=== PATIENT | male | born 1980 | race Caucasian/White ===

== ENCOUNTER 2016-12-28 16:26 | Emergency (ER) | payer SELFPAY ==
[~2016-12-28] VITALS: Ht 193 cm; Wt 74.0 kg
[~2016-12-28 16:26] MED LIST: PROC10TA4 PO; Z.0.NO CURRENT MEDS
[2016-12-28 16:27] VITALS: BP 147/84; PULSE 112; RESP 20; TEMP 98.1; O2SAT 97
[2016-12-28] MEDS ORDERED: AMOXICILLIN (TRIHYDRATE) 500 MG CAP PO ONE (17:15)
[2016-12-28] MEDS ORDERED: KETOROLAC TROMETHAMINE 60 MG/2 ML (IM) VIAL IM ONE (17:15)
--- NOTE | 2016-12-28 17:15 | PD ---
HPI Chief Complaint: Oral / Dental Pain or Problem Time Seen by Provider: 17:15 Travel History International Travel<30 days: No Contact w/Intl Traveler<30days: No Traveled to known affect area: No History of Present Illness HPI 36-year-old male presents to emergency Department with complaint of left upper tooth pain since Monday. Says the pain is moved up into his left upper cheek. Denies facial edema. Denies fever, vomiting. Denies sore throat, difficulty swallowing. Has been taking [id number] medications for symptom management. Symptoms are mild in severity. Has no other medical complaints. No known allergies. No other modifying factors or associated signs and symptoms. 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 HEAD: Atraumatic. Normocephalic. No facial edema, erythema, tenderness on palpation. No lymphadenopathy. EYES: Pupils equal and round. No scleral icterus. No injection or drainage. ENT: Mucosa pink and moist. Airway patent. MOUTH: Mucous membranes moist, no lesions, tongue and gums appear normal. Poor dentition throughout. Tooth #14 with tenderness on palpation; large dental cavity noted. Surrounding gingiva is without erythema, edema, drainage. No obvious abscess noted. NECK: Trachea midline. No lymphadenopathy. CARDIOVASCULAR: Regular rate. RESPIRATORY: No accessory muscle use. GASTROINTESTINAL: Flat. MUSCULOSKELETAL: No obvious deformities. No clubbing. No cyanosis. No edema. NEUROLOGICAL: Awake and alert. Oriented 3. No obvious cranial nerve deficits. Motor grossly within normal limits. Normal speech. PSYCHIATRIC: Appropriate mood and affect; insight and judgment normal. Data Data Last Documented VS Vital Signs Date Time Temp Pulse Resp B/P (MAP) Pulse Ox O2 Delivery O2 Flow Rate FiO2 12/28/16 17:24 92 12/28/16 16:27 98.1 20 97 Room Air Orders Orders Ketorolac Inj (Toradol Inj) (12/28/16 17:15) Amoxicillin (Trimox) (12/28/16 17:15) [facility] Medical Decision Making Medical Screen Exam Complete: Yes Emergency Medical Condition: Yes Medical Record Reviewed: Yes Differential Diagnosis Dental abscess, dentalgia, dental cavities, gingivitis Narrative Course 36-year-old male is going exam consistent with dentalgia and dental cavities. No facial edema or erythema. Denies fever, vomiting. Patient is afebrile and nontoxic-appearing. Toradol administered in the ER. Amoxicillin, ibuprofen, Peridex mouth rinse prescribed for home. Instructed patient to follow up with dentist. Emergency dental information sheet provided for follow-up. Instructed patient to follow up with primary care provider. Patient verbalizes understanding and agreement with treatment plan. Patient is medically cleared and stable for discharge. Discussed reasons to return to the emergency department. Patient agrees with treatment plan. The patients vital signs are stable and the patient is stable for outpatient follow-up and treatment. Patient discharged home, stable and in no acute distress. Diagnosis Primary Impression: Dentalgia Additional Impression: Dental cavities Referrals: Dentist Primary Care Physician Patient Instructions: Dental Abscess (ED), Dental Caries (ED), General Instructions, Toothache (ED) Additional Instructions: Complete full course of antibiotics Ibuprofen or Tylenol as directed and as needed to reduce pain and inflammation Use Peridex as directed for oral hygiene Warm or cool compresses to the affected area Follow-up with dentist Follow-up with primary care provider Return to emergency department immediately with worsening of symptoms Med/Other Pt SpecificInfo: Prescription(s) given Scripts Amoxicillin (Amoxicillin) 500 Mg Cap 500 MG PO BID for Infection for 10 Days, CAP 0 Refills Prov: Tiny FlorentinoP 12/28/16 Ibuprofen (Ibuprofen) 800 Mg Tab 800 MG PO Q6HR Y for PAIN, #30 TAB 0 Refills Prov: Tiny FlorentinoP 12/28/16 Chlorhexidine Gluconate (Mouth) Liq (Peridex Liq) 0.12% Soln 15 ML SWISH-SPIT BID for 10 Days, #473 ML 0 Refills Prov: Tiny Florentino 12/28/16 Disposition: 01 DISCHARGE HOME Condition: Stable Tiny Florentino Dec 28, 2016 17:15
[2016-12-28] MEDS ORDERED: AMOX500C PO (17:19)
[2016-12-28] MEDS ORDERED: PERI0.126 SWISH-SPIT (17:19)
[2016-12-28] MEDS ORDERED: IBUP800T23 PO (17:19)
== END 2016-12-28 17:38 | disposition home or self-care (01) ==
LOC: NEPK 16:26
DX: K02.9 Dental caries, unspecified (principal)
CPT/HCPCS: 96372; 99283; J1885

== ENCOUNTER 2017-10-14 17:11 | Emergency (ER) | payer SELFPAY ==
[~2017-10-14] VITALS: Ht 182.9 cm; Wt 59.0 kg
[~2017-10-14 17:11] MED LIST changes: +AMOX500C PO; +IBUP1TAB7 PO; +PERI0.126 SWISH-SPIT; -PROC10TA4 PO; -Z.0.NO CURRENT MEDS
[2017-10-14 17:17] VITALS: BP 142/85; PULSE 80; RESP 18; O2SAT 97
--- NOTE | 2017-10-14 17:47 | PD ---
HPI Chief Complaint: OD/ Ingestion Time Seen by Provider: 17:19 Travel History International Travel<30 days: No Contact w/Intl Traveler<30days: No Traveled to known affect area: No History of Present Illness HPI Patient 36-year-old male room to the emergency department after found unresponsive by EMS, initially apneic, was given Narcan intramuscularly and return of spontaneous respirations mentation. Fairly somnolent on arrival. He is able to provide his own history and states that he did heroin for the third time in his life and knows it was stupid and he thinks he overdosed. He has no physical complaints at this time. Denies any chest pain shortness breath abdominal pain nausea vomiting diarrhea constipation. 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 SKIN: Focused skin assessment warm/dry. HEAD: Normocephalic. EYES: No scleral icterus. No injection or drainage. NECK: Supple, trachea midline. No JVD or lymphadenopathy. CARDIOVASCULAR: Regular rate and rhythm without murmurs, gallops, or rubs. RESPIRATORY: Breath sounds equal bilaterally. No accessory muscle use. No wheezes rales or rhonchi GASTROINTESTINAL: Abdomen soft, non-tender, nondistended. MUSCULOSKELETAL: No cyanosis, or edema. Neurologic: GCS of 14(E3), follows commands in all 4 extremities. Cranial nerves II through XII grossly intact and nonfocal BACK: Nontender without obvious deformity. No CVA tenderness. Data Data Last Documented VS Vital Signs Date Time Temp Pulse Resp B/P (MAP) Pulse Ox O2 Delivery O2 Flow Rate FiO2 10/14/17 18:08 70 18 98 Room Air 10/14/17 17:17 142/85 (104) Orders Orders Electrocardiogram (10/14/17 17:27) Ed Discharge Order (10/14/17 19:11) [facility] Medical Decision Making Medical Screen Exam Complete: Yes Emergency Medical Condition: Yes Differential Diagnosis Heroin overdose, hypoxia, aspiration pneumonia unlikely. Narrative Course Patient room to the emergency department, discussed observation. In the emergency department, initially targeted for 3 hours the patient approached nursing desk at 2 hours, cooperative, states he was wide awake and wish for discharge. I think that at this point he is stable for discharge, discussed abstinence for hair when other illicit substance alcohol and tobacco, follow-up store [employer]. He is stable for discharge per Diagnosis Primary Impression: Heroin overdose [facility] No Active Prescriptions or Reported Meds Disposition: 01 DISCHARGE HOME Condition: Stable Giuliano Galvin MD Oct 14, 2017 17:46
--- NOTE | 2017-10-15 13:46 | EKG ---
Date Performed: 10/14/2017 Time Performed: 17:27:16 PTAGE: 36 years EKG: Sinus rhythm BORDERLINE RIGHT AXIS DEVIATION BORDERLINE ECG NO PREVIOUS TRACING DOCTOR: Alfredito Luevano Interpretating Date/Time 10/15/2017 13:46:16
== END 2017-10-14 19:52 | disposition home or self-care (01) ==
LOC: NEPE 17:11
DX: T40.1X1A Poisoning by heroin, accidental (unintentional), initial encounter (principal)
CPT/HCPCS: 93005

== ENCOUNTER 2017-11-02 08:19 | Observation (INO) ==
[2017-11-02] MEDS ORDERED: Sod Chloride 0.9% Inj 1,000 ML IV.SIG ONE (09:30)
[2017-11-02] MEDS ORDERED: Acetaminophen 325 MG Tablet PO ONE (09:30)
--- NOTE | 2017-11-02 09:46 | ED ---
HPI General Chief complaint: Skin/Abscess/Foreign Body Stated complaint: Poss Infection Time Seen by Provider: 11/02/17 09:24 Source: patient and family Mode of arrival: ambulatory History of Present Illness HPI narrative: 36-year-old male notes progressive redness and swelling to his face despite home antibiotic therapy given here on the . He denies any new complaints otherwise. He states he thinks the antibiotic was monocycline but is not sure. States last IV drug use was 2 years ago. complaint: other (facial swelling and redness) Onset (ago): day(s) Location: face Severity: severe Quality: sharp Pain Consistency: constant Relieving factors: none Exacerbating factors: movement Context: other (recent er visit on the of this month) Associated symptoms: denies other symptoms Treatments prior to arrival: Benadryl Related Data Previous Rx's Medication Instructions Recorded clindamycin HCl 300 mg PO Q8H 14 Days #84 cap 10/30/17 Allergies Allergy/AdvReac Type Severity Reaction Status Date / Time No Known Allergies Allergy Verified 11/02/17 09:32 Review of Systems Except as stated in HPI: all other systems reviewed are negative [facility] Medical History Medical History Meningitis (Acute) Surgical History Surgical History No history of previous surgery (Acute) Social History Social History Substance History: Past History Smoking Status: Never smoker How Often Do You Have a Drink Containing Alcohol: Never Recent Out of Country Travel within the Last 8 Weeks: No Immunization History Tetanus Immunization: <5 Years Hx Influenza Vaccine This Season: Yes Exam Narrative Exam Narrative: GENERAL: 36 y/o male who appears uncomfortable SKIN: Patient has redness to bilateral lower face with swelling left greater than right HEAD: Atraumatic. EYES: Pupils equal and round. No scleral icterus. No injection or drainage. ENT: No nasal bleeding or discharge. Mucous membranes pink and moist. NECK: Trachea midline. CARDIOVASCULAR: Regular rate and rhythm. No murmur appreciated. RESPIRATORY: No accessory muscle use. Clear to auscultation. Breath sounds equal bilaterally. GASTROINTESTINAL: Abdomen soft, non-tender, nondistended MUSCULOSKELETAL: No obvious deformities. No clubbing. No cyanosis. NEUROLOGICAL: Awake and alert. No obvious cranial nerve deficits. Motor grossly within normal limits. Normal speech. Course Hospital Course: Review of records shows patient received IV clindamycin and was sent home on oral clindamycin. Patient had heroin overdose on October 19 of this year Reevaluation(s) Reevaluation #1: patient requesting additional pain medication and was given Toradol. Will admit for further care Consultations Consultation #1: dr elmore agrees to admit Initial Documented Vital Signs Temperature 99.2 F 11/02/17 08:23 Pulse Rate 87 11/02/17 08:23 Respiratory Rate 16 11/02/17 08:23 Blood Pressure 158/98 H 11/02/17 08:23 Pulse Oximetry 100 11/02/17 08:23 Last Documented Vital Signs Temperature 99.2 F 11/02/17 08:23 Pulse Rate 80 11/02/17 11:25 Respiratory Rate 14 11/02/17 11:25 Blood Pressure 156/87 H 11/02/17 11:25 Pulse Oximetry 100 11/02/17 11:25 Medical Decision Making [facility] Narrative Medical decision making narrative: Will check blood work, repeat CT scan and reevaluate Differential Diagnosis Differential Diagnosis: Abscess, facial cellulitis, allergic reaction Lab Data Result diagrams: 11/02/17 09:50 11/02/17 09:50 Lab Results 11/02/17 11/02/17 11/02/17 Range/Units 09:50 09:50 09:50 WBC 11.3 H (4.0-11.0) th/mm3 RBC 5.15 (4.50-5.90) mil/mm3 Hgb 15.2 (13.0-17.0) gm/dL Hct 45.7 (39.0-51.0) % MCV 88.8 (80.0-100.0) fL MCH 29.6 (27.0-34.0) pg MCHC 33.3 (32.0-36.0) % RDW 14.3 (11.6-17.2) % Plt Count 236 (150-450) th/mm3 MPV 8.0 (7.0-11.0) fL Neut % (Auto) 79.3 H (16.0-70.0) % Lymph % (Auto) 11.5 (9.0-44.0) % [place] % (Auto) 7.3 (0.0-8.0) % Eos % (Auto) 1.6 (0.0-4.0) % Baso % (Auto) 0.3 (0.0-2.0) % Neut # (Auto) 8.9 H (1.8-7.7) th/mm3 Lymph # (Auto) 1.3 (1.0-4.8) th/mm3 [place] # (Auto) 0.8 (0.0-0.9) th/mm3 Eos # (Auto) 0.2 (0.0-0.4) th/mm3 Baso # (Auto) 0.0 (0.0-0.2) th/mm3 WBC Differential . Differential Comment Auto diff final PT 9.4 L (9.8-11.6) sec INR 0.9 Ratio APTT 28.3 (24.3-30.1) sec Sodium 139 (136-145) meq/L Potassium 4.6 (3.5-5.1) meq/L Chloride 105 (98-107) meq/L Carbon Dioxide 27.7 (21.0-32.0) meq/L Anion Gap 6 (5-15) meq/L BUN 8 (7-18) mg/dL Creatinine 0.95 (0.60-1.30) mg/dL Estimated GFR 89 (>89) mL/min Random Glucose 103 (74-106) mg/dL Lactic Acid (0.4-2.0) mmol/L Calcium 8.4 L (8.5-10.1) mg/dL Magnesium 1.8 (1.5-2.5) mg/dL Total Bilirubin 0.8 (0.2-1.0) mg/dL AST 41 H (15-37) U/L ALT 57 (12-78) U/L Alkaline Phosphatase 94 (45-117) U/L Total Protein 7.4 (6.4-8.2) g/dL Albumin 3.4 (3.4-5.0) g/dL 11/02/17 Range/Units 09:50 WBC (4.0-11.0) th/mm3 RBC (4.50-5.90) mil/mm3 Hgb (13.0-17.0) gm/dL Hct (39.0-51.0) % MCV (80.0-100.0) fL MCH (27.0-34.0) pg MCHC (32.0-36.0) % RDW (11.6-17.2) % Plt Count (150-450) th/mm3 MPV (7.0-11.0) fL Neut % (Auto) (16.0-70.0) % Lymph % (Auto) (9.0-44.0) % [place] % (Auto) (0.0-8.0) % Eos % (Auto) (0.0-4.0) % Baso % (Auto) (0.0-2.0) % Neut # (Auto) (1.8-7.7) th/mm3 Lymph # (Auto) (1.0-4.8) th/mm3 [place] # (Auto) (0.0-0.9) th/mm3 Eos # (Auto) (0.0-0.4) th/mm3 Baso # (Auto) (0.0-0.2) th/mm3 WBC Differential Differential Comment PT (9.8-11.6) sec INR Ratio APTT (24.3-30.1) sec Sodium (136-145) meq/L Potassium (3.5-5.1) meq/L Chloride (98-107) meq/L Carbon Dioxide (21.0-32.0) meq/L Anion Gap (5-15) meq/L BUN (7-18) mg/dL Creatinine (0.60-1.30) mg/dL Estimated GFR (>89) mL/min Random Glucose (74-106) mg/dL Lactic Acid 1.6 (0.4-2.0) mmol/L Calcium (8.5-10.1) mg/dL Magnesium (1.5-2.5) mg/dL Total Bilirubin (0.2-1.0) mg/dL AST (15-37) U/L ALT (12-78) U/L Alkaline Phosphatase (45-117) U/L Total Protein (6.4-8.2) g/dL Albumin (3.4-5.0) g/dL Imaging Data Radiologist's impression: ITS Impressions Chest X-Ray 11/02/17 09:30 CONCLUSION: No acute cardiopulmonary disease. Face CT 11/02/17 09:30 CONCLUSION: 1. Significant bilateral facial inflammation characteristic of cellulitis with subcutaneous fat involvement. There is no evidence of discrete abscess. 2. Significant reduction compared to 10/30 3. No evidence of deep fascial or intracranial involvement. Discharge Plan Discharge Disposition Patient Disposition: 30 Still Patient Discharge Details Diagnosis: Cellulitis of face Physicians Team ED Provider: Anali Ponce Primary Care Provider: Primary Care Marsha Allen Attending Provider: Roseline Elmore Discharge Interventions Interventions: Vital Signs Last Done: 11/02/17 11:25 Status ED Status: Admitted Patient
[2017-11-02] MEDS ORDERED: Ketorolac Inj 30 MG/ML (IVP) Vial IV.PUSH ONE ×2 (10:01→10:45)
[2017-11-02 10:03] LABS: Baso % (Auto) 0.3 % (0.0-2.0); Eos # (Auto) 0.2 th/mm3 (0.0-0.4); Eos % (Auto) 1.6 % (0.0-4.0); Hematocrit 45.7 % (39.0-51.0); Hemoglobin 15.2 gm/dL (13.0-17.0); Lymph # (Auto) 1.3 th/mm3 (1.0-4.8); Lymph % (Auto) 11.5 % (9.0-44.0); Mean Corpuscular HGB Conc 33.3 % (32.0-36.0); Mean Corpuscular Hemoglobin 29.6 pg (27.0-34.0); Mean Corpuscular Volume 88.8 fL (80.0-100.0); Mono # (Auto) 0.8 th/mm3 (0.0-0.9); Mono % (Auto) 7.3 % (0.0-8.0); Neut # (Auto) 8.9 th/mm3 (1.8-7.7); Neut % (Auto) 79.3 % (16.0-70.0); Platelet Count 236 th/mm3 (150-450); Red Blood Count 5.15 mil/mm3 (4.50-5.90); Red Cell Distribution Width 14.3 % (11.6-17.2); White Blood Count 11.3 th/mm3 (4.0-11.0)
[2017-11-02 10:11] LABS: Activated Partial Thrombo Time 28.3 sec (24.3-30.1); INR 0.9 Ratio; Prothrombin Time 9.4 sec (9.8-11.6)
[2017-11-02 10:27] LABS: Alkaline Phosphatase 94 U/L (45-117); Total Protein 7.4 g/dL (6.4-8.2)
[2017-11-02 10:29] LABS: Alanine Aminotransferase 57 U/L (12-78); Albumin 3.4 g/dL (3.4-5.0); Anion Gap 6 meq/L (5-15); Aspartate Aminotransferase 41 U/L (15-37); Blood Urea Nitrogen 8 mg/dL (7-18); Calcium 8.4 mg/dL (8.5-10.1); Carbon Dioxide 27.7 meq/L (21.0-32.0); Chloride 105 meq/L (98-107); Glomerular Filtration Rate 89 mL/min (>89); Glucose,Random 103 mg/dL (74-106); Magnesium 1.8 mg/dL (1.5-2.5); Potassium 4.6 meq/L (3.5-5.1); Sodium 139 meq/L (136-145)
--- NOTE | 2017-11-02 10:29 | XR ---
EXAM DATE: 11/02/2017 10:04 AM EDT AGE/SEX: 36 years / Male INDICATIONS: Short of breath and fever. CLINICAL DATA: This is the patient's initial encounter. Patient reports that signs and symptoms have been present for 1 day and indicates a pain score of 0/10. MEDICAL/SURGICAL HISTORY: None. None. COMPARISON: No prior exams available for comparison. FINDINGS: A single AP view of the chest demonstrates the lungs to be symmetrically aerated without evidence of mass, infiltrate or effusion. The cardiomediastinal contours are unremarkable. Osseous structures a re intact. CONCLUSION: No acute cardiopulmonary disease. Electronically signed by: Nelson Covarrubias MD 11/02/2017 10:27 AM EDT
[2017-11-02] MEDS ORDERED: Vancomycin Inj 1 GM/200 ML PIGGYBACK IV.SIG ONE (10:33)
[2017-11-02] MEDS ORDERED: Vancomycin Inj 1,000 MG in Sodium Chlor 0.9% Inj 250 ML IV.SIG ONE (11:00)
--- NOTE | 2017-11-02 12:07 | CT ---
EXAM DATE: 11/02/2017 11:45 AM EDT AGE/SEX: 36 years / Male INDICATIONS: Non improving facial pain and facial pain bilaterally. CLINICAL DATA: This is the patient's sequela encounter. Patient reports that signs and symptoms have been present for 1 week and indicates a pain score of 8/10. MEDICAL/SURGICAL HISTORY: None. None. RADIATION DOSE: 29.28 CTDI (mGy) COMPARISON: [facility] – [place], [place] FACIAL BONES W IV CON, 10/30/2017. . TECHNIQUE: Contiguous images in the axial and coronal planes were obtained using helical multirow de tector technique with 60 ml Omnipaque 350 (iohexol) nonionic water-soluble contrast as a single exam dose. Using automated exposure control and adjustment of the mA and/or kV according to patient size , radiation dose was kept as low as reasonably achievable to obtain optimal diagnostic quality images . DICOM format image data is available electronically for review and comparison. FINDINGS: Orbits: The orbital and infraorbital osseous structures are intact. The retroconal structures have a normal configuration. No radiopaque foreign bodies are seen. Nasal Bone: The nasal bone and maxillary spine are intact. Zygomatic Arches: Symmetric without evidence of fracture. Sinuses: The maxillary, ethmoid and frontal sinuses are intact. No air-fluid levels seen. Nasal Cavity: The nasal septum is intact and midline. The lacrimal ducts are intact. Soft Tissues: Significant bilateral subcutaneous inflammation is identified. The soft tissue swellin g begins in the infraorbital region and extends to the mandible. Inflammation is significantly worse on the right. There are no loculated fluid collections characteristic of an abscess. Inflammatory pro cess has significantly progressed since 10/30/2017 Intracranial: No intracranial air seen. Cribriform Plate: Grossly intact. Post Contrast: No abnormal areas of enhancement seen. CONCLUSION: 1. Significant bilateral facial inflammation characteristic of cellulitis with subcutaneous fat invo lvement. There is no evidence of discrete abscess. 2. Significant reduction compared to 10/30 3. No evidence of deep fascial or intracranial involvement. Electronically signed by: Bowen Linton MD 11/02/2017 12:06 PM EDT
[2017-11-02] MEDS ORDERED: Piperacil/Tazo 3.375 GM Premix 50 ML IV.SIG ONE (12:20)
[2017-11-02] MEDS ORDERED: Bisacodyl 10 MG Supp RECTAL PRN (12:36)
[2017-11-02] MEDS ORDERED: Temazepam 15 MG Capsule PO PRN (12:36)
--- NOTE | 2017-11-02 15:03 | P.CONID ---
History of Present Illness Service: ID Consult date: 11/02/17 Requesting Physician: Roseline Elmore Reason for Consult: Evaluation and Mment of Facial cellulitis/abscess Primary Care Provider: No Primary Care Physician Family Provider: No Primary Care Physician History of Present Illness: is a 36-year-old male with past medical history significant for recent IV drug abuse as recently as 2 weeks back as well as prior history of bacterial meningitis in 1999. Patient initially presented to the emergency department on October 29, 2017 with multiple lesions on his face. Patient reports he has a compulsive habit of pulling out hair that are ingrown from his face and more recently he noticed is obsessed with the care of. He started noticing swelling on his face bilaterally and started picking at them and noticed purulent discharge from them. Patient was discharged on clindamycin oral and despite taking antibiotics his facial swelling and pain kept getting worse and so he presented back to the hospital. He reports facial swelling as well as swelling around his eye especially on the lower eyelid. Patient reports that due to the eyelid swelling he is unable to completely open his eyes and therefore thinks it is obstructing his vision. Pertinent positives and negatives: He denies any history of fever but reports chills. Patient admits to using crack and heroin intravenously. He denies any other lesion elsewhere on the body. He does have tattoos but none of these are recent. Patient reports he has been tested for HIV as well as hepatitis [facility] recently and these were both negative and is to be tested Patient also reports being tested for tuberculosis using a skin test which is negative. Infectious disease consulted for evaluation and management of bilateral facial cellulitis and abscesses. Review of Systems All other systems reviewed negative except as stated in HPI PMFSH - History History Provided By: Patient - Medical History Medical History: Medical History (Last Reviewed 11/02/17 @ 09:44 by Anali Ponce MD) Meningitis - Surgical History Surgical History: Surgical History (Last Reviewed 11/02/17 @ 09:44 by Anali Ponce MD) No history of previous surgery - Family History Family History: Family History (Last Updated 11/02/17 @ 18:26 by Suzanne Roche RN) Father Family history of diabetes mellitus Family history of hypertension Mother Family history of breast cancer - Tobacco History Smoking Status: Never smoker - Alcohol History How Often Do You Have a Drink Containing Alcohol: Never - Substance Use History Substance History: Past History - Substance Use Type Heroin Status: Early Remission Route Used: Intravenously Frequency: 3X PER MONTH Last Used: 10/17/2017 Reason for Use: Feels Good Comment: PT STATES "WENT ON 2 WEEK ANGELES." Crack/Cocaine Status: Early Remission Route Used: Inhalation Frequency: DAILY FOR WEEK Last Used: 10/17/2017 Reason for Use: Feels Good Comment: PT STATES "ALL DRUGS USED DURING THE 2 WEEK ANGELES." Methamphetamine Type: CRYSTAL METH Status: Early Remission Route Used: Intravenously Frequency: 5 DAYS Last Used: 10/19/2017 Reason for Use: Socialization Other Type: DILAUDA Status: Early Remission Route Used: Intravenously Frequency: 4MG TWICE A DAY Last Used: 10/13/2017 Reason for Use: Calm Down Comment: PT. STATES "USED DILAUDA PRIOR TO CUSTODIAL. GOT OUT OF CUSTODIAL 08/11/2017 AND PARTICIPATED IN DRUG USE A CELEBRATION FOR RELEASE." - Travel History Recent Travel Out of the Country Within the Last 8 Weeks: No - Immunization History Tetanus Immunization: <5 Years Hx Influenza Vaccine This Season: Yes Medications and Allergies Active Medications: Active Medications Hydrocodone Bitart/Acetaminophen ([place] 7.5/325) 1 tab PO Q6H PRN PRN Reason: PAIN SCALE 6 TO 10 Last Admin: 11/02/17 14:59 Dose: 1 tab Al Hydroxide/Mg Hydroxide (Milk Of Magnesia Liq) 30 ml PO Q12H PRN PRN Reason: Mild Constipation Bisacodyl (Dulcolax Supp) 10 mg RECTAL DAILY PRN PRN Reason: SEVERE CONSITIPATION Lactulose (Lactulose Liq) 30 ml PO DAILY PRN PRN Reason: SEVERE CONSITIPATION Senna/Docusate Sodium (Kelly-Colace) 1 tab PO BID [place] Sennosides (Senokot) 17.2 mg PO Q12H PRN PRN Reason: Moderate Constipation Temazepam (Restoril) 15 mg PO HS PRN PRN Reason: INSOMNIA Allergies Allergy/AdvReac Type Severity Reaction Status Date / Time No Known Allergies Allergy Verified 11/02/17 09:32 Exam Vital signs: Vital Signs 11/02/17 08:23 11/02/17 09:27 11/02/17 10:29 Temperature 99.2 F Pulse Rate 87 88 Respiratory Rate 16 12 Blood Pressure 158/98 H 159/93 H Pulse Oximetry 100 100 100 11/02/17 11:25 11/02/17 13:55 Temperature Pulse Rate 80 94 H Respiratory Rate 14 16 Blood Pressure 156/87 H 145/95 H Pulse Oximetry 100 98 Intake & Output 11/01/17 11/02/17 11/02/17 18:59 06:59 18:59 Intake Total 1300 / 1300 Balance 1300 / 1300 Weight 74.843 kg Intake: IV 1300 / 1300 Zosyn 3.375 GM Premix 50 ML @ 50 / 50 100 mls/hr IV.SIG ONCE ONE Rx#: [id number] Vancomycin Inj 1,000 MG In NS 250 / 250 Inj 250 ML @ 250 mls/hr IV.SIG ONCE ONE Rx#:[id number] Narrative: GENERAL: Well-nourished well-developed, not in acute distress SKIN: Multiple tattoos noted on the body. No generalized rash. The right side of the face close to the temporomandibular joint there is a large area of induration and erythema noted., No fluctuance noted. There is another area of induration noted close to the angle of his mouth on the right side again this is evaluated with no fluctuance noted. On the left side of his cheek there was another area of induration with no fluctuation noted but there is erythema noted. HEAD: Atraumatic. Normocephalic. No temporal or scalp tenderness. EYES: Pupils equal round and reactive. Scleral icterus. No injection or drainage. No petechia ENT: Nothing abnormal detected NECK: Trachea midline. Supple, nontender, no meningeal signs. CARDIOVASCULAR: HS audible. RESPIRATORY: Clear to auscultation bilaterally. GASTROINTESTINAL: Abdomen soft nontender. MUSCULOSKELETAL: Extremities without clubbing, cyanosis. NEUROLOGICAL: Alert oriented 3. Nonfocal. Psych appears anxious. IV line sites ok. Results - Labs CBC & Chem 7: 11/02/17 09:50 11/02/17 09:50 Labs: Laboratory Results - last 24 hr 11/02/17 11/02/17 11/02/17 09:50 09:50 09:50 WBC 11.3 H RBC 5.15 Hgb 15.2 Hct 45.7 MCV 88.8 MCH 29.6 MCHC 33.3 RDW 14.3 Plt Count 236 MPV 8.0 Neut % (Auto) 79.3 H Lymph % (Auto) 11.5 [place] % (Auto) 7.3 Eos % (Auto) 1.6 Baso % (Auto) 0.3 Neut # (Auto) 8.9 H Lymph # (Auto) 1.3 [place] # (Auto) 0.8 Eos # (Auto) 0.2 Baso # (Auto) 0.0 WBC Differential . Differential Comment Auto diff final PT 9.4 L INR 0.9 APTT 28.3 Sodium 139 Potassium 4.6 Chloride 105 Carbon Dioxide 27.7 Anion Gap 6 BUN 8 Creatinine 0.95 Estimated GFR 89 Random Glucose 103 Lactic Acid Calcium 8.4 L Magnesium 1.8 Total Bilirubin 0.8 AST 41 H ALT 57 Alkaline Phosphatase 94 Total Protein 7.4 Albumin 3.4 11/02/17 09:50 WBC RBC Hgb Hct MCV MCH MCHC RDW Plt Count MPV Neut % (Auto) Lymph % (Auto) [place] % (Auto) Eos % (Auto) Baso % (Auto) Neut # (Auto) Lymph # (Auto) [place] # (Auto) Eos # (Auto) Baso # (Auto) WBC Differential Differential Comment PT INR APTT Sodium Potassium Chloride Carbon Dioxide Anion Gap BUN Creatinine Estimated GFR Random Glucose Lactic Acid 1.6 Calcium Magnesium Total Bilirubin AST ALT Alkaline Phosphatase Total Protein Albumin - Imaging Impressions Chest X-Ray 11/02/17 09:30 CONCLUSION: No acute cardiopulmonary disease. Face CT 11/02/17 09:30 CONCLUSION: 1. Significant bilateral facial inflammation characteristic of cellulitis with subcutaneous fat involvement. There is no evidence of discrete abscess. 2. Significant reduction compared to 10/30 3. No evidence of deep fascial or intracranial involvement. Assessment and Plan - Plan Bilateral facial cellulitis as well as multiple abscesses on the face. History of compulsive picking on the base. Possible history of anxiety and depression. History of incarceration. Recommendations: Start vancomycin IV target trough 10-15 Start doxycycline oral will help with the anti-inflammatory effect. Discussed with Dr. Elmore consider psych consult ? OCD related compulsive picking of face. Consult Plastics to see if any of these abscesses can be drained. Follow cultures Follow clinically.
--- NOTE | 2017-11-02 15:15 | P.HP ---
History of Present Illness Primary Care Physician: No Primary Care Physician Chief Complaint: Generalized weakness, multiple facial lesions and swelling. History of Present Illness: Mr. Barney is a pleasant 36-year-old male with a history of bacterial meningitis in 1999, recent IV drug abuse who presents to the emergency department due to worsening facial lesions and swelling. On 10/29/2017, patient started noticing multiple lesions on his face. He used tweezers to pick some here from his face. He came to the emergency department on 10/30/2017 and he was discharged on clindamycin. Despite taking antibiotics, his facial swelling, pain kept getting worse. He also reports chills but no fever. He admits to using IV drugs 2 weeks ago -he uses crack and heroine. At the time of this interview, patient denies any chest pain, shortness of breath, fever or chills. He reports facial swelling and difficulty eating. No changes in bowel or bladder habits. - Diagnosis (1) IVDU (intravenous drug user) (2) Cellulitis of face Inpatient Certification: I certify that the inpatient services were ordered in accordance with Medicare regulations governing the order. This includes certification that hospital inpatient services are reasonable and necessary and in the case of services not specified as inpatient-only under 42 CFR 419.22(n), that they are appropriately provided as inpatient services in accordance to with the 2-midnight benchmark under 43 CFR 412.3(e) Review of Systems All other systems reviewed negative except as stated in HPI Constitutional: Reports chills Skin/Breast: Reports lesions, Reports redness, Reports skin pain PMFSH - History History Provided By: Patient - Medical History Medical History: Medical History (Last Reviewed 11/02/17 @ 09:44 by Anali Ponce MD) Meningitis - Surgical History Surgical History: Surgical History (Last Reviewed 11/02/17 @ 09:44 by Anali Ponce MD) No history of previous surgery - Tobacco History Smoking Status: Never smoker - Alcohol History How Often Do You Have a Drink Containing Alcohol: Never - Substance Use History Substance History: Past History - Travel History Recent Travel Out of the Country Within the Last 8 Weeks: No - Immunization History Tetanus Immunization: <5 Years Hx Influenza Vaccine This Season: Yes Medications and Allergies Active Medications: Active Medications Hydrocodone Bitart/Acetaminophen ([place] 7.5/325) 1 tab PO Q6H PRN PRN Reason: PAIN SCALE 6 TO 10 Al Hydroxide/Mg Hydroxide (Milk Of Magnesia Liq) 30 ml PO Q12H PRN PRN Reason: Mild Constipation Bisacodyl (Dulcolax Supp) 10 mg RECTAL DAILY PRN PRN Reason: SEVERE CONSITIPATION Lactulose (Lactulose Liq) 30 ml PO DAILY PRN PRN Reason: SEVERE CONSITIPATION Senna/Docusate Sodium (Kelly-Colace) 1 tab PO BID [place] Sennosides (Senokot) 17.2 mg PO Q12H PRN PRN Reason: Moderate Constipation Temazepam (Restoril) 15 mg PO HS PRN PRN Reason: INSOMNIA Allergies Allergy/AdvReac Type Severity Reaction Status Date / Time No Known Allergies Allergy Verified 11/02/17 09:32 Exam Vital signs: Vital Signs 11/02/17 08:23 11/02/17 09:27 11/02/17 10:29 Temperature 99.2 F Pulse Rate 87 88 Respiratory Rate 16 12 Blood Pressure 158/98 H 159/93 H Pulse Oximetry 100 100 100 11/02/17 11:25 11/02/17 13:55 Temperature Pulse Rate 80 94 H Respiratory Rate 14 16 Blood Pressure 156/87 H 145/95 H Pulse Oximetry 100 98 Intake & Output 11/01/17 11/02/17 11/02/17 18:59 06:59 18:59 Weight 74.843 kg Narrative: GENERAL: This is a well-nourished, well-developed patient, in no apparent distress. SKIN: No rashes, ecchymoses or lesions. Warm and dry. Multiple erythematous skin lesions with induration noted on the face. HEAD: Atraumatic. Normocephalic. No temporal or scalp tenderness. EYES: Pupils equal round and reactive. No injection or drainage. ENT: Nose without bleeding, purulent drainage or septal hematoma. Airway patent. NECK: Trachea midline. No lymphadenopathy. Supple, nontender, no meningeal signs. CARDIOVASCULAR: Regular rate and rhythm without murmurs, gallops, or rubs. No JVD. RESPIRATORY: Clear to auscultation. Breath sounds equal bilaterally. No wheezes , rales, or rhonchi. GASTROINTESTINAL: Abdomen soft, non-tender, nondistended. No guarding. MUSCULOSKELETAL: Extremities without clubbing, cyanosis, or edema. NEUROLOGICAL: Awake and alert. Cranial nerves II through XII intact. No focal neurological deficits. Normal speech. Results - Labs CBC & Chem 7: 11/02/17 09:50 11/02/17 09:50 Labs: Laboratory Results - last 24 hr 11/02/17 11/02/17 11/02/17 09:50 09:50 09:50 WBC 11.3 H RBC 5.15 Hgb 15.2 Hct 45.7 MCV 88.8 MCH 29.6 MCHC 33.3 RDW 14.3 Plt Count 236 MPV 8.0 Neut % (Auto) 79.3 H Lymph % (Auto) 11.5 [place] % (Auto) 7.3 Eos % (Auto) 1.6 Baso % (Auto) 0.3 Neut # (Auto) 8.9 H Lymph # (Auto) 1.3 [place] # (Auto) 0.8 Eos # (Auto) 0.2 Baso # (Auto) 0.0 WBC Differential . Differential Comment Auto diff final PT 9.4 L INR 0.9 APTT 28.3 Sodium 139 Potassium 4.6 Chloride 105 Carbon Dioxide 27.7 Anion Gap 6 BUN 8 Creatinine 0.95 Estimated GFR 89 Random Glucose 103 Lactic Acid Calcium 8.4 L Magnesium 1.8 Total Bilirubin 0.8 AST 41 H ALT 57 Alkaline Phosphatase 94 Total Protein 7.4 Albumin 3.4 11/02/17 09:50 WBC RBC Hgb Hct MCV MCH MCHC RDW Plt Count MPV Neut % (Auto) Lymph % (Auto) [place] % (Auto) Eos % (Auto) Baso % (Auto) Neut # (Auto) Lymph # (Auto) [place] # (Auto) Eos # (Auto) Baso # (Auto) WBC Differential Differential Comment PT INR APTT Sodium Potassium Chloride Carbon Dioxide Anion Gap BUN Creatinine Estimated GFR Random Glucose Lactic Acid 1.6 Calcium Magnesium Total Bilirubin AST ALT Alkaline Phosphatase Total Protein Albumin - Imaging Impressions Chest X-Ray 11/02/17 09:30 CONCLUSION: No acute cardiopulmonary disease. Face CT 11/02/17 09:30 CONCLUSION: 1. Significant bilateral facial inflammation characteristic of cellulitis with subcutaneous fat involvement. There is no evidence of discrete abscess. 2. Significant reduction compared to 10/30 3. No evidence of deep fascial or intracranial involvement. Caprini VTE Risk Assessment Caprini VTE Risk Assessment: No/Low Risk (score <= 1) Caprini Risk Assessment Model: Point Value = 1 Point Value = 2 Point Value = 3 Point Value = 5 Age 41-60 Minor surgery BMI > 25 kg/m2 Swollen legs Varicose veins or History of unexplained or recurrent spontaneous Oral contraceptives or hormone replacement Sepsis (< 1 month) Serious lung disease, including pneumonia (< 1 month) Abnormal pulmonary function Acute myocardial infarction Congestive heart failure (< 1 month) History of inflammatory bowel disease Medical patient at bed rest Age 61-74 Arthroscopic surgery Major open surgery (> 45 min) Laparoscopic surgery (> 45 min) Malignancy Confined to bed (> 72 hours) Immobilizing plaster cast Central venous access Age >= 75 History of VTE Family history of VTE Factor V Leiden Prothrombin [id number] Lupus anticoagulant Anticardiolipin antibodies Elevated serum homocysteine Heparin-induced thrombocytopenia Other congenital or acquired thrombophilia Stroke (< 1 month) Elective arthroplasty Hip, pelvis, or leg fracture Acute spinal cord injury (< 1 month) Prophylaxis Regimen: Total Risk Factor Score Risk Level Prophylaxis Regimen 0-1 Low Early ambulation 2 Moderate Order ONE of the following: *Sequential Compression Device (SCD) *Heparin 5000 units SQ BID 3-4 Higher Order ONE of the following medications: *Heparin 5000 units SQ TID *Enoxaparin/Lovenox 40 mg SQ daily (WT < 150 kg, CrCl > 30 mL/min) *Enoxaparin/Lovenox 30 mg SQ daily (WT < 150 kg, CrCl > 10-29 mL/min) *Enoxaparin/Lovenox 30 mg SQ BID (WT < 150 kg, CrCl > 30 mL/min) AND/OR *Sequential Compression Device (SCD) 5 or more Highest Order ONE of the following medications: *Heparin 5000 units SQ TID (Preferred with Epidurals) *Enoxaparin/Lovenox 40 mg SQ daily (WT < 150 kg, CrCl > 30 mL/min) *Enoxaparin/Lovenox 30 mg SQ daily (WT < 150 kg, CrCl > 10-29 mL/min) *Enoxaparin/Lovenox 30 mg SQ BID (WT < 150 kg, CrCl > 30 mL/min) AND *Sequential Compression Device (SCD) Assessment and Plan - Assessment (1) IVDU (intravenous drug user) Code(s): F19.90 - Other psychoactive substance use, unspecified, uncomplicated Status: Acute (2) Cellulitis of face Code(s): L03.211 - Cellulitis of face Status: Acute - Plan Mr. Barney is a 36-year-old male with a history of IV drug use, bacterial meningitis in 1999 who presents to the emergency department due to worsening facial lesions and swelling. Facial cellulitis - Multiple indurated lesions. - Due to outpatient abx failure on Clindamycin and history of IV drug use, we will consult ID. - Discussed with ID. Patient may need acute and suppressive treatments. - Patient received Vancomycin and Zosyn in the ED. Will wait for ID recommendations. History of recent IV drug use - Patient is heavily counselled. - Blood cx pending. If positive, we will pursue further work up (e.g, Echo). Anxiety - Patient's hair pulling habits possibly contributing to his symptoms. - ID recommends a Psychiatry consult. We will also start patient on low dose Seroquel. Full code. Lovenox.
[2017-11-02] MEDS ORDERED: Vancomycin Consult Pharmacy 1 EACH OTHER SCH (16:00)
--- NOTE | 2017-11-02 17:28 | P.CONPSY ---
Provisional Diagnosis Admission Date: November 02, 2017 13:19 [employer] I.: Unspecified anxiety, r/o OCD, polysubstance dependence including opiates, cocaine, methamphetamine [employer] II.: Deferred [employer] III.: Facial cellulitis History of Present Illness Service: Medicine Primary Care Provider: No Primary Care Physician Family Provider: No Primary Care Physician Chief Complaint: Generalized weakness, multiple facial lesions and swelling. History of Present Illness: The patient is a pleasant 36-year-old man, domiciled [place] roommates in [facility], employed in construction, single, with psychiatric history of anxiety, no previous psychiatric hospitalizations, no previous suicide attempts, polysubstance dependence including opiates, methamphetamines, cocaine , IV drug user, with a history of bacterial meningitis in 1999, who presents to the emergency department due to worsening facial lesions and swelling. On 10/29/2017, patient started noticing multiple lesions on his face. He used tweezers to pick some here from his face. He came to the emergency department on 10/30/2017 and he was discharged on clindamycin. Despite taking antibiotics, his facial swelling, pain kept getting worse. He also reports chills but no fever. He admits to using IV drugs 2 weeks ago -he uses crack and heroine. At the time of this interview, patient denies any chest pain, shortness of breath, fever or chills. He reports facial swelling and difficulty eating. No changes in bowel or bladder habits. Patient consulted to psychiatry to define and treat anxiety. EMR reviewed. On psychiatric evaluation the patient is calm, cooperative, quite pleasant. The patient reports that since he was released from assisted about 2 months ago he has being struggling with drug use. He says that he was clear for about a month, but he relapsed for some weeks and now he has being clean for about 2 weeks. However, he says that he has been having increased anxiety with a prominent skin peaking his face. The patient reports that he does this came peaking as an act to release stress. He says that he feels a strong sensation that he has to scratch his skin in his face and then peak he is asking. He reports that in the last weeks he has been spending more than an hour in total during the day with this behavior. He reports okay mood, denies anhedonia, denies hopelessness , denies helplessness, he denies suicidal and homicidal ideation, he denies visual and auditory hallucinations. Patient is oriented 3. No attention deficit. Reports using Dilaudid IV as a drug of choice, also used methamphetamines and cocaine sporadically, but he has been now clean for about 2 weeks. Review of Systems Constitutional: Denies anorexia, Denies body ache(s), Denies chills, Denies daytime sleepiness, Denies excessive sweating, Denies fatigue, Denies fever(s), Denies headache(s), Denies increased appetite, Denies lack of energy, Denies malaise, Denies night sweats, Denies weakness, Denies weight gain, Denies weight loss, Denies other Cardiovascular: Denies chest pain, Denies chest pain at rest, Denies chest pain with activity, Denies excessive sweating, Denies fainting, Denies fast heart rate, Denies foot swelling, Denies generalized swelling, Denies irregular heart rhythm, Denies leg pain with activity, Denies leg sores, Denies leg swelling, Denies lightheadedness, Denies radiating jaw, neck or arm pain, Denies rapid, pounding, or irregular heartbeat, Denies shortness of breath, Denies shortness of breath with activity, Denies shortness of breath when lying down, Denies shortness of breath causing sudden awakening, Denies slow heart rate, Denies other Respiratory: Denies change in phlegm color, Denies chest congestion, Denies cough, Denies coughing up blood, Denies excessive phlegm production, Denies pain on inspiration, Denies pain with cough, Denies shortness of breath, Denies shortness of breath with activity, Denies snoring, Denies stridor, Denies wheezing, Denies other Gastrointestinal: Denies abdominal pain, Denies belching, Denies black, tarry stools, Denies bloating, Denies bright, red blood in stools, Denies change in bowel habits, Denies constant urge to pass stool, Denies change in stools, Denies coffee ground vomit, Denies constipation, Denies cramping, Denies difficulty swallowing, Denies excessive passing of gas, Denies feeling full early, Denies heartburn, Denies incontinent of stools, Denies loose stools, Denies nausea, Denies pain with swallowing, Denies vomiting, Denies vomiting blood, Denies other Musculoskeletal: Denies abnormal walking, Denies back pain, Denies body aches, Denies decreased muscle mass, Denies deformity, Denies joint pain, Denies joint swelling, Denies limited joint movement, Denies loss of height, Denies muscle cramps, Denies muscle weakness, Denies neck pain, Denies numbness, Denies radiating pain into limb, Denies stiffness, Denies tingling, Denies other Skin/Breast: Reports other (A skin inflammation in his face), Denies acne, Denies bleeding lesions, Denies boil, Denies breast swelling, Denies breast skin changes, Denies breast pain, Denies breast lump, Denies change in breast shape, Denies change in hair, Denies change in skin color, Denies changing lesions, Denies dry skin, Denies excessive hair growth, Denies hair loss, Denies itching, Denies lesions, Denies nail changes, Denies new lesions, Denies nipple discharge, Denies non-healing lesions, Denies redness, Denies sensitivity to light, Denies rash, Denies skin pain, Denies skin ulcer, Denies sores, Denies stretch stoddard, Denies unusual bruising, Denies wounds, Denies yellowing of the skin Neurologic: Denies abnormal hearing, Denies abnormal movements, Denies abnormal speech, Denies abnormal walking, Denies behavioral changes, Denies burning sensations, Denies confusion, Denies dizziness, Denies fainting, Denies frequent falls, Denies headache(s), Denies lack of coordination, Denies localized weakness, Denies loss of vision, Denies memory loss, Denies numbness, Denies other visual disturbances, Denies radiating pain, Denies restless legs, Denies convulsions, Denies seizure-like activity, Denies sensory deficit, Denies tingling, Denies tingling/numbness/burning sensations, Denies tremor(s), Denies unsteadiness, Denies weakness, Denies other Psychiatric: Reports other (Anxiety, obsessive-compulsive behavior) [facility] - History History Provided By: Patient - Medical History Medical History: Medical History (Last Reviewed 11/02/17 @ 09:44 by Anali Ponce MD) Meningitis - Surgical History Surgical History: Surgical History (Last Reviewed 11/02/17 @ 09:44 by Anali Ponce MD) No history of previous surgery - Tobacco History Smoking Status: Never smoker - Alcohol History How Often Do You Have a Drink Containing Alcohol: Never - Substance Use History Substance History: Past History - Travel History Recent Travel Out of the Country Within the Last 8 Weeks: No - Immunization History Tetanus Immunization: <5 Years Hx Influenza Vaccine This Season: Yes Medications and Allergies Active Medications: Active Medications Hydrocodone Bitart/Acetaminophen ([place] 7.5/325) 1 tab PO Q6H PRN PRN Reason: PAIN SCALE 6 TO 10 Last Admin: 11/02/17 14:59 Dose: 1 tab Al Hydroxide/Mg Hydroxide (Milk Of Magnesia Liq) 30 ml PO Q12H PRN PRN Reason: Mild Constipation Bisacodyl (Dulcolax Supp) 10 mg RECTAL DAILY PRN PRN Reason: SEVERE CONSITIPATION Clonazepam (Klonopin) 0.5 mg PO Q8HR [place] Doxycycline Hyclate (Vibramycin) 100 mg PO Q12HR [place] Enoxaparin Sodium (Lovenox Inj) 40 mg SQ DAILY [place] Fluoxetine HCl (Prozac) 20 mg PO DAILY [facility] Pharmacy Profile Note (Vancomycin Consult Pharmacy) 0 mls @ 0 mls/hr OTHER UNSCH [place] Lactulose (Lactulose Liq) 30 ml PO DAILY PRN PRN Reason: SEVERE CONSITIPATION Quetiapine Fumarate (Seroquel) 25 mg PO BID [place] Senna/Docusate Sodium (Kelly-Colace) 1 tab PO BID [place] Sennosides (Senokot) 17.2 mg PO Q12H PRN PRN Reason: Moderate Constipation Temazepam (Restoril) 15 mg PO HS PRN PRN Reason: INSOMNIA Allergies Allergy/AdvReac Type Severity Reaction Status Date / Time No Known Allergies Allergy Verified 11/02/17 09:32 Exam Vital signs: Vital Signs 11/02/17 08:23 11/02/17 09:27 11/02/17 10:29 Temperature 99.2 F Pulse Rate 87 88 Respiratory Rate 16 12 Blood Pressure 158/98 H 159/93 H Pulse Oximetry 100 100 100 11/02/17 11:25 11/02/17 13:55 Temperature Pulse Rate 80 94 H Respiratory Rate 14 16 Blood Pressure 156/87 H 145/95 H Pulse Oximetry 100 98 Intake & Output 11/01/17 11/02/17 11/02/17 18:59 06:59 18:59 Intake Total 1300 / 1300 Balance 1300 / 1300 Weight 74.843 kg Intake: IV 1300 / 1300 Zosyn 3.375 GM Premix 50 ML @ 50 / 50 100 mls/hr IV.SIG ONCE ONE Rx#: [id number] Vancomycin Inj 1,000 MG In NS 250 / 250 Inj 250 ML @ 250 mls/hr IV.SIG ONCE ONE Rx#:[id number] Narrative: No EPS, no withdrawal symptoms, no stiffness, no psychomotor agitation retardation, no withdrawal symptoms Mental Status Examination Appearance: Appropriate Consciousness: Alert Orientation: x4 Motor Activity: Normal gait Speech: Unremarkable Language: Adequate Fund of Knowledge: Adequate Attention and Concentration: Adequate Memory: Unremarkable Mood: Appropriate Affect: Appropriate Thought Process & Associations: Intact Thought Content: Appropriate Hallucination Type: None Delusion Type: None Suicidal Ideation: No Suicidal Plan: No Suicidal Intention: No Homicidal Ideation: No Homicidal Plan: No Homicidal Intention: No Insight: Adequate Judgment: Adequate Assessment and Plan - Plan Plan: Estimated LOS: [] days On psychiatric evaluation today the patient presents with increased symptoms of anxiety consisting on uncontrollable desire to scratch and pinch the skin of his face to relieve anxiety. He also reports episodic anxiety during the day. Difficulty sleeping at night. Denies mood symptoms. Denies suicidal enemas ideation, he denies visual and auditory hallucinations. There is a patient with psychiatric history of polysubstance dependence including opiates, methamphetamines, cocaine, he has been in a nearly partial remission. Denies suicidal and homicidal ideation, he denies visual and auditory hallucinations. No admission indicated. Patient seems to be having OCD symptoms. We will start clonazepam 0.5 mg 3 times daily, also Prozac 10 mg daily for symptoms of anxiety. Prozac can be increase by 10 mg every 3-5 days as patient can tolerate. For the treatment of OCD high doses of Prozac are recommended. Agree with Seroquel 25 mg twice daily for anxiety and impulse control. Brief supportive psychotherapy, psychoeducation provided. Consult appreciated. Justification for Continued Inpatient Stay: No admission indicated
[2017-11-02] MEDS ORDERED: Vancomycin Inj 1,250 MG in Sodium Chlor 0.9% Inj 250 ML IV.SIG SCH (18:00)
[2017-11-02] MEDS ORDERED: Vancomycin Inj 1,500 MG in Sodium Chlor 0.9% Inj 500 ML IV.SIG SCH (18:00)
[2017-11-02] MEDS: clonazePAM 0.5 MG Tablet PO SCH (18:44)
[2017-11-02] MEDS: FLUoxetine 10 MG Capsule PO SCH (18:44)
[2017-11-02] MEDS: Senna/Docusate Sodium 8.6/50 MG Tablet PO SCH (20:47)
[2017-11-02] MEDS: QUEtiapine 25 MG Tablet PO SCH (20:47)
[2017-11-03] MEDS: clonazePAM 0.5 MG Tablet PO SCH ×4 (00:51→21:04)
[2017-11-03] MEDS: Vancomycin Inj 1,500 MG in Sodium Chlor 0.9% Inj 500 ML IV.SIG SCH ×3 (00:51→21:02)
[2017-11-03] MEDS: Enoxaparin Inj 40 MG/0.4 ML Syringe SQ SCH (08:35)
[2017-11-03] MEDS: FLUoxetine 10 MG Capsule PO SCH (08:35)
[2017-11-03] MEDS: Senna/Docusate Sodium 8.6/50 MG Tablet PO SCH ×2 (08:35→21:02)
[2017-11-03] MEDS: QUEtiapine 25 MG Tablet PO SCH ×2 (08:35→21:04)
[2017-11-03] MEDS ORDERED: Morphine Inj 4 MG/ML Vial IV.PUSH ONE (14:54)
--- NOTE | 2017-11-03 14:54 | MP ---
cc: Makenna Sanches MD DATE OF OPERATION: 11/03/2017 DATE OF OPERATION: 11/03/2017 PREOPERATIVE DIAGNOSIS: Facial abscess x 3. POSTOPERATIVE DIAGNOSIS: Facial abscess x 3. PROCEDURE PERFORMED: 1. Incision and drainage of abscess of right cheek area over the zygoma. 2. Incision and drainage of right cheek abscess lateral to the lip. 3. Incision and drainage of abscess of the left cheek. ANESTHESIA: Local. SURGEON: Makenna Sanches MD INDICATION FOR PROCEDURE: A 36-year-old male with 3 facial abscesses. FINDINGS: Each of the abscesses did contain pus in a deep pocket. At the completion of the procedure, the pus had been expressed. The wounds irrigated and packed with half-inch plain packing. OPERATIVE TIME: 45 minutes. DESCRIPTION OF PROCEDURE: The operation was performed in the emergency room. The patient was in the supine position. Timeout was called by the nurse. The facial area was prepped with Betadine and infiltrated with lidocaine 1% with epinephrine. Anesthetic was placed beneath the area of the abscesses and around them to create a field block. This was done sequentially with all 3 of them and then in the superficial area by the skin. Once the anesthetic had taken effect, attention was first turned to the area of the right cheek by the zygoma. Incision was made with a #11 blade down through the skin, down into the abscess cavity. Pus was expressed. The clamp was used to explore the wound to break up the loculations. Pus was expressed. It was then copiously irrigated with saline and packed with half inch packing. Attention was turned to the area just lateral to the lip on the right cheek. There had been some spontaneous drainage. This was opened and the incision was made, bigger. The clamp was used to explore the wound and additional thick purulent material was expressed. This was cultured. The wound was then copiously irrigated with saline and packed with 0.5 inch packing. Attention was then turned to the left cheek, where a #11 blade was used to make an elliptical incision out through the skin down into the abscess cavity with 2 mL of pus was expressed. The area was copiously irrigated with saline. The clamp was used to break up loculations. Then, the packing was then placed into the wound. The area was then cleansed of Betadine and blood and the patient was given back to the care of the nurse who was instructed to place povidone-iodine solution and a dry nonstick dressing. The patient did tolerate the procedure well and orders were written. MD VIJAY Lo/RAVINDRA , 02:35 PM , 02:52 PM
--- NOTE | 2017-11-03 15:31 | P.PNIM ---
Subjective Interval history: Patient reports that facial pain has increased after incision and drainage. Denies any chest pain shortness of breath. Denies nausea vomiting. Physical Exam Vital signs: Vital Signs 11/02/17 16:00 11/02/17 20:00 11/02/17 21:20 Temperature 97.7 F 98.7 F Pulse Rate 73 90 Respiratory Rate 18 16 21 Blood Pressure 115/65 144/81 H Pulse Oximetry 98 98 11/03/17 00:00 11/03/17 03:37 11/03/17 08:00 Temperature 98.3 F 98.5 F 97.4 F L Pulse Rate 99 H 90 74 Respiratory Rate 20 16 15 Blood Pressure 151/80 H 147/79 H 145/89 H Pulse Oximetry 97 97 94 L 11/03/17 08:32 11/03/17 11:10 11/03/17 12:00 Temperature 97.8 F Pulse Rate 95 H Respiratory Rate 18 18 Blood Pressure 152/93 H Pulse Oximetry 94 L 98 11/03/17 15:16 Temperature 98.5 F Pulse Rate 86 Respiratory Rate 19 Blood Pressure 165/95 H Pulse Oximetry 97 Intake & Output 11/02/17 11/03/17 11/03/17 18:59 06:59 18:59 Intake Total 1300 / 1300 1765 / 1765 515 / 515 Balance 1300 / 1300 1765 / 1765 515 / 515 Weight 77.111 kg Intake: IV 1300 / 1300 515 / 515 515 / 515 Zosyn 3.375 GM Premix 50 ML @ 50 / 50 100 mls/hr IV.SIG ONCE ONE Rx#: [id number] Vancomycin Inj 1,000 MG In NS 250 / 250 Inj 250 ML @ 250 mls/hr IV.SIG ONCE ONE Rx#:[id number] Vancomycin Inj 1,500 MG In NS 515 / 515 515 / 515 Inj 500 ML @ 250 mls/hr IV.SIG Q12H [facility] Rx#:[id number] Oral 1250 / 1250 Other: # Voids 3 Date of Last Bowel Movement 11/01/17 Weight On Admission 77.111 kg Narrative: GENERAL: Patient sitting up in bed. Appears uncomfortable. SKIN: Warm and dry. Abscesses on bilateral face packed, please HEAD: Normocephalic. EYES: No scleral icterus. No injection or drainage. NECK: Supple, trachea midline. No JVD or lymphadenopathy. CARDIOVASCULAR: Regular rate and rhythm without murmurs, gallops, or rubs. RESPIRATORY: Breath sounds equal bilaterally. No accessory muscle use. GASTROINTESTINAL: Abdomen soft, non-tender, nondistended. MUSCULOSKELETAL: No cyanosis, or edema. BACK: Nontender without obvious deformity. No CVA tenderness. Results - Labs CBC & Chem 7: 11/02/17 09:50 11/02/17 09:50 Microbiology 11/02/17 09:45 Blood - Peripheral Aerobic Blood Culture - Preliminary No growth in 1 day 11/02/17 09:45 Blood - Peripheral Anaerobic Blood Culture - Preliminary No growth in 1 day 11/02/17 09:50 Blood - Peripheral Aerobic Blood Culture - Preliminary No growth in 1 day 11/02/17 09:50 Blood - Peripheral Anaerobic Blood Culture - Preliminary No growth in 1 day Assessment and Plan - Assessment (1) IVDU (intravenous drug user) Code(s): F19.90 - Other psychoactive substance use, unspecified, uncomplicated Status: Acute (2) Cellulitis of face Code(s): L03.211 - Cellulitis of face Status: Acute - Plan Mr. Barney is a 36-year-old male with a history of IV drug use, bacterial meningitis in 1999 who presents to the emergency department due to worsening facial lesions and swelling. //Facial cellulitis - Multiple indurated lesions. - Due to outpatient abx failure on Clindamycin and history of IV drug use, we will consult ID. - Discussed with ID. Patient may need acute and suppressive treatments. - Patient received Vancomycin and Zosyn in the ED. Will wait for ID recommendations. = Continue antibiotics. Status post incision and drainage by plastics. Appreciate assistance. ID following. //History of recent IV drug use - Patient is heavily counselled. - Blood cx pending. If positive, we will pursue further work up (e.g, Echo). //Anxiety - Patient's hair pulling habits possibly contributing to his symptoms. - ID recommends a Psychiatry consult. We will also start patient on low dose Seroquel. = Appreciate psychiatry assistance. //Full code. Lovenox. Discharge Planning: Pending ID and plastics clearance.
--- NOTE | 2017-11-03 17:47 | P.PNID ---
Subjective Remarks: is a 36-year-old male with past medical history significant for recent IV drug abuse as recently as 2 weeks back as well as prior history of bacterial meningitis in 1999. Patient initially presented to the emergency department on October 29, 2017 with multiple lesions on his face. Patient reports he has a compulsive habit of pulling out hair that are ingrown from his face and more recently he noticed is obsessed with the care of. He started noticing swelling on his face bilaterally and started picking at them and noticed purulent discharge from them. Patient was discharged on clindamycin oral and despite taking antibiotics his facial swelling and pain kept getting worse and so he presented back to the hospital. He reports facial swelling as well as swelling around his eye especially on the lower eyelid. Patient reports that due to the eyelid swelling he is unable to completely open his eyes and therefore thinks it is obstructing his vision. Pertinent positives and negatives: He denies any history of fever but reports chills. Patient admits to using crack and heroin intravenously. He denies any other lesion elsewhere on the body. He does have tattoos but none of these are recent. Patient reports he has been tested for HIV as well as hepatitis while in the senior care recently and these were both negative and is to be tested Patient also reports being tested for tuberculosis using a skin test which is negative. Infectious disease consulted for evaluation and management of bilateral facial cellulitis and abscesses. Overnight events reviewed. No fever No rash No diarrhea Status post bedside incision and drainage of multiple abscesses on the face currently abscess is packed. Antibiotics: Vanco IV. Doxy oral Lines: Line sites with no evidence of infection. Past Medical History: Meningitis. Allergies/Adverse Reactions: Allergies No Known Allergies Allergy (Verified 11/02/17 09:32) Objective Vital Signs 11/02/17 20:00 11/02/17 21:20 11/03/17 00:00 Temperature 98.7 F 98.3 F Pulse Rate 90 99 H Respiratory Rate 16 21 20 Blood Pressure 144/81 H 151/80 H Pulse Oximetry 98 97 11/03/17 03:37 11/03/17 08:00 11/03/17 08:32 Temperature 98.5 F 97.4 F L Pulse Rate 90 74 Respiratory Rate 16 15 Blood Pressure 147/79 H 145/89 H Pulse Oximetry 97 94 L 94 L 11/03/17 11:10 11/03/17 12:00 11/03/17 15:16 Temperature 97.8 F 98.5 F Pulse Rate 95 H 86 Respiratory Rate 18 18 19 Blood Pressure 152/93 H 165/95 H Pulse Oximetry 98 97 11/03/17 15:30 Temperature Pulse Rate Respiratory Rate 18 Blood Pressure Pulse Oximetry Intake & Output 11/02/17 11/03/17 11/03/17 18:59 06:59 18:59 Intake Total 1300 / 1300 1765 / 1765 515 / 515 Balance 1300 / 1300 1765 / 1765 515 / 515 Weight 77.111 kg Intake: IV 1300 / 1300 515 / 515 515 / 515 Zosyn 3.375 GM Premix 50 ML @ 50 / 50 100 mls/hr IV.SIG ONCE ONE Rx#: [id number] Vancomycin Inj 1,000 MG In NS 250 / 250 Inj 250 ML @ 250 mls/hr IV.SIG ONCE ONE Rx#:[id number] Vancomycin Inj 1,500 MG In NS 515 / 515 515 / 515 Inj 500 ML @ 250 mls/hr IV.SIG Q12H [facility] Rx#:[id number] Oral 1250 / 1250 Other: # Voids 3 Date of Last Bowel Movement 11/01/17 Weight On Admission 77.111 kg 11/03/17 14:30 Wound - Face Gram Stain - Pending 11/03/17 14:30 Wound - Face Wound Culture - Pending 11/02/17 09:45 Blood - Peripheral Aerobic Blood Culture - Preliminary No growth in 1 day 11/02/17 09:45 Blood - Peripheral Anaerobic Blood Culture - Preliminary No growth in 1 day 11/02/17 09:50 Blood - Peripheral Aerobic Blood Culture - Preliminary No growth in 1 day 11/02/17 09:50 Blood - Peripheral Anaerobic Blood Culture - Preliminary No growth in 1 day Lab - Hematology Results 11/02/17 09:50 WBC 11.3 H RBC 5.15 Hgb 15.2 Hct 45.7 MCV 88.8 MCH 29.6 MCHC 33.3 RDW 14.3 Plt Count 236 MPV 8.0 Neut % (Auto) 79.3 H Lymph % (Auto) 11.5 [place] % (Auto) 7.3 Eos % (Auto) 1.6 Baso % (Auto) 0.3 Neut # (Auto) 8.9 H Lymph # (Auto) 1.3 [place] # (Auto) 0.8 Eos # (Auto) 0.2 Baso # (Auto) 0.0 WBC Differential . Differential Comment Auto diff final Lab - Chemistry Results 11/02/17 11/02/17 09:50 09:50 Sodium 139 Potassium 4.6 Chloride 105 Carbon Dioxide 27.7 Anion Gap 6 BUN 8 Creatinine 0.95 Estimated GFR 89 Random Glucose 103 Lactic Acid 1.6 Calcium 8.4 L Magnesium 1.8 Total Bilirubin 0.8 AST 41 H ALT 57 Alkaline Phosphatase 94 Total Protein 7.4 Albumin 3.4 Imaging: ITS Impressions Chest X-Ray 11/02/17 09:30 CONCLUSION: No acute cardiopulmonary disease. Face CT 11/02/17 09:30 CONCLUSION: 1. Significant bilateral facial inflammation characteristic of cellulitis with subcutaneous fat involvement. There is no evidence of discrete abscess. 2. Significant reduction compared to 10/30 3. No evidence of deep fascial or intracranial involvement. Physical Exam: GENERAL: Well-nourished well-developed, not in acute distress SKIN: Multiple tattoos noted on the body. No generalized rash. The right side of the face close to the temporomandibular joint there is a large area of induration and erythema noted., No fluctuance noted. There is another area of induration noted close to the angle of his mouth on the right side again this is evaluated with no fluctuance noted. On the left side of his cheek there was another area of induration with no fluctuation noted but there is erythema noted. HEAD: Atraumatic. Normocephalic. No temporal or scalp tenderness. EYES: Pupils equal round and reactive. Scleral icterus. No injection or drainage. No petechia ENT: Nothing abnormal detected NECK: Trachea midline. Supple, nontender, no meningeal signs. CARDIOVASCULAR: HS audible. RESPIRATORY: Clear to auscultation bilaterally. GASTROINTESTINAL: Abdomen soft nontender. MUSCULOSKELETAL: Extremities without clubbing, cyanosis. NEUROLOGICAL: Alert oriented 3. Nonfocal. Psych appears anxious. IV line sites ok. Assessment and Plan - Plan Bilateral facial cellulitis as well as multiple abscesses on the face. History of compulsive picking on the base. Possible history of anxiety and depression. History of incarceration. Recommendations: Continue vancomycin IV target trough 10-15 Continue doxycycline oral will help with the anti-inflammatory effect. Plastics note reviewed. Appreciate psychiatry recommendations Follow cultures Follow clinically. Dr. Cotter covering this weekend. I will be out of town from November 04, 2017. Other ID MD is covering for me.
[2017-11-04] MEDS: clonazePAM 0.5 MG Tablet PO SCH ×3 (07:00→22:07)
[2017-11-04] MEDS ORDERED: Pharmacy Ordered Lab Info OTHER ONE (08:45)
[2017-11-04] MEDS: Enoxaparin Inj 40 MG/0.4 ML Syringe SQ SCH (08:49)
[2017-11-04] MEDS: FLUoxetine 10 MG Capsule PO SCH (08:50)
[2017-11-04] MEDS: Senna/Docusate Sodium 8.6/50 MG Tablet PO SCH ×2 (08:50→22:05)
[2017-11-04] MEDS: QUEtiapine 25 MG Tablet PO SCH ×2 (08:50→22:07)
[2017-11-04] MEDS: Vancomycin Inj 1,500 MG in Sodium Chlor 0.9% Inj 500 ML IV.SIG SCH ×2 (10:04→22:06)
--- NOTE | 2017-11-04 10:13 | P.PNIM ---
Subjective Interval history: Patient reports that facial pain is improved today. Manageable. Denies any chest pain or shortness of breath. Denies nausea or vomiting. Physical Exam Vital signs: Vital Signs 11/03/17 11:10 11/03/17 12:00 11/03/17 15:10 Temperature 97.8 F Pulse Rate 95 H Respiratory Rate 18 18 18 Blood Pressure 152/93 H Pulse Oximetry 98 11/03/17 15:16 11/03/17 15:30 11/03/17 21:00 Temperature 98.5 F 98.5 F Pulse Rate 86 78 Respiratory Rate 19 18 16 Blood Pressure 165/95 H 158/92 H Pulse Oximetry 97 97 11/03/17 23:41 11/04/17 04:23 11/04/17 08:00 Temperature 97.8 F 97.7 F 97.5 F L Pulse Rate 74 86 86 Respiratory Rate 18 16 16 Blood Pressure 136/84 146/97 H 128/88 Pulse Oximetry 99 99 97 Intake & Output 11/03/17 11/04/17 11/04/17 18:59 06:59 18:59 Intake Total 835 / 835 515 / 515 Balance 835 / 835 515 / 515 Intake: IV 515 / 515 515 / 515 Vancomycin Inj 1,500 MG In NS 515 / 515 515 / 515 Inj 500 ML @ 250 mls/hr IV.SIG Q12H [facility] Rx#:[id number] Oral Supplement 320 / 320 Other: # Voids 1 Date of Last Bowel Movement 11/03/17 Narrative: GENERAL: Patient sitting up in bed. Appears uncomfortable. SKIN: Warm and dry. Abscesses on bilateral face packed. No bleeding. Minimal surrounding erythema. HEAD: Normocephalic. EYES: No scleral icterus. No injection or drainage. NECK: Supple, trachea midline. No JVD or lymphadenopathy. CARDIOVASCULAR: Regular rate and rhythm without murmurs, gallops, or rubs. RESPIRATORY: Breath sounds equal bilaterally. No accessory muscle use. GASTROINTESTINAL: Abdomen soft, non-tender, nondistended. MUSCULOSKELETAL: No cyanosis, or edema. BACK: Nontender without obvious deformity. No CVA tenderness. Results - Labs CBC & Chem 7: 11/02/17 09:50 11/02/17 09:50 Laboratory Results - last 24 hr 11/04/17 09:05 Vancomycin Trough 13.2 H Microbiology 11/03/17 14:30 Wound - Face Gram Stain - Final 11/02/17 09:45 Blood - Peripheral Aerobic Blood Culture - Preliminary No growth in 1 day 11/02/17 09:45 Blood - Peripheral Anaerobic Blood Culture - Preliminary No growth in 1 day 11/02/17 09:50 Blood - Peripheral Aerobic Blood Culture - Preliminary No growth in 1 day 11/02/17 09:50 Blood - Peripheral Anaerobic Blood Culture - Preliminary No growth in 1 day Assessment and Plan - Assessment (1) IVDU (intravenous drug user) Code(s): F19.90 - Other psychoactive substance use, unspecified, uncomplicated Status: Acute (2) Cellulitis of face Code(s): L03.211 - Cellulitis of face Status: Acute - Plan Mr. Barney is a 36-year-old male with a history of IV drug use, bacterial meningitis in 1999 who presents to the emergency department due to worsening facial lesions and swelling. //Facial cellulitis - Multiple indurated lesions. - Due to outpatient abx failure on Clindamycin and history of IV drug use, we will consult ID. - Discussed with ID. Patient may need acute and suppressive treatments. - Patient received Vancomycin and Zosyn in the ED. Will wait for ID recommendations. = Continue antibiotics. Status post incision and drainage by plastics. Appreciate assistance. ID following. = 11/04. Per discussion with ID yesterday, will follow up final results of facial abscess culture. //History of recent IV drug use - Patient is heavily counselled. - Blood cx pending. If positive, we will pursue further work up (e.g, Echo). //Anxiety - Patient's hair pulling habits possibly contributing to his symptoms. - ID recommends a Psychiatry consult. We will also start patient on low dose Seroquel. = Appreciate psychiatry assistance. //Full code. Lovenox. Discharge Planning: Pending ID and plastics clearance. f/u cx
[2017-11-05] MEDS: clonazePAM 0.5 MG Tablet PO SCH ×2 (05:35→14:21)
[2017-11-05] MEDS: Enoxaparin Inj 40 MG/0.4 ML Syringe SQ SCH (09:26)
[2017-11-05] MEDS: Senna/Docusate Sodium 8.6/50 MG Tablet PO SCH (09:26)
[2017-11-05] MEDS: FLUoxetine 10 MG Capsule PO SCH (09:27)
[2017-11-05] MEDS: QUEtiapine 25 MG Tablet PO SCH (09:28)
[2017-11-05] MEDS: Vancomycin Inj 1,500 MG in Sodium Chlor 0.9% Inj 500 ML IV.SIG SCH (09:28)
--- NOTE | 2017-11-05 10:16 | P.PNIM ---
Subjective Interval history: Patient reports the pain is controlled. Denies any chest pain shortness of breath Physical Exam Vital signs: Vital Signs 11/04/17 10:23 11/04/17 12:00 11/04/17 15:49 Temperature 97.9 F Pulse Rate 83 Respiratory Rate 20 16 18 Blood Pressure 162/87 H Pulse Oximetry 99 11/04/17 16:00 11/04/17 19:24 11/05/17 00:22 Temperature 97.5 F L 98.2 F 98.6 F Pulse Rate 78 100 H 114 H Respiratory Rate 14 18 17 Blood Pressure 135/83 145/91 H 136/87 Pulse Oximetry 96 97 97 11/05/17 04:02 Temperature 98.1 F Pulse Rate 112 H Respiratory Rate 18 Blood Pressure 138/85 Pulse Oximetry 96 Intake & Output 11/04/17 11/05/17 11/05/17 18:59 06:59 18:59 Intake Total 1030 / 1030 Balance 1030 / 1030 Intake: IV 1030 / 1030 Vancomycin Inj 1,500 MG In NS 1030 / 1030 Inj 500 ML @ 250 mls/hr IV.SIG Q12H [facility] Rx#:[id number] Other: Date of Last Bowel Movement 11/03/17 Narrative: GENERAL: Patient sitting up in bed. Appears uncomfortable. SKIN: Warm and dry. Abscesses on bilateral face. No bleeding. Minimal surrounding erythema. HEAD: Normocephalic. EYES: No scleral icterus. No injection or drainage. NECK: Supple, trachea midline. No JVD or lymphadenopathy. CARDIOVASCULAR: Regular rate and rhythm without murmurs, gallops, or rubs. RESPIRATORY: Breath sounds equal bilaterally. No accessory muscle use. GASTROINTESTINAL: Abdomen soft, non-tender, nondistended. MUSCULOSKELETAL: No cyanosis, or edema. BACK: Nontender without obvious deformity. No CVA tenderness. Results - Labs CBC & Chem 7: 11/02/17 09:50 11/02/17 09:50 Microbiology 11/03/17 14:30 Wound - Face Gram Stain - Final 11/03/17 14:30 Wound - Face Wound Culture - Final S. aureus MRSA 11/02/17 09:45 Blood - Peripheral Aerobic Blood Culture - Preliminary No growth in 2 days 11/02/17 09:45 Blood - Peripheral Anaerobic Blood Culture - Preliminary No growth in 2 days 11/02/17 09:50 Blood - Peripheral Aerobic Blood Culture - Preliminary No growth in 2 days 11/02/17 09:50 Blood - Peripheral Anaerobic Blood Culture - Preliminary No growth in 2 days Assessment and Plan - Assessment (1) IVDU (intravenous drug user) Code(s): F19.90 - Other psychoactive substance use, unspecified, uncomplicated Status: Acute (2) Cellulitis of face Code(s): L03.211 - Cellulitis of face Status: Acute - Plan Mr. Barney is a 36-year-old male with a history of IV drug use, bacterial meningitis in 1999 who presents to the emergency department due to worsening facial lesions and swelling. //Facial cellulitis - Multiple indurated lesions. - Due to outpatient abx failure on Clindamycin and history of IV drug use, we will consult ID. - Discussed with ID. Patient may need acute and suppressive treatments. - Patient received Vancomycin and Zosyn in the ED. Will wait for ID recommendations. = Continue antibiotics. Status post incision and drainage by plastics. Appreciate assistance. ID following. = 11/04. Per discussion with ID yesterday, will follow up final results of facial abscess culture. = 11/05. MRSA has returned resistant to penicillins. Sensitive to Doxy, Bactrim. Will discharge home on antibiotics to complete treatment course. Follow-up with primary care as outpatient //History of recent IV drug use - Patient is heavily counselled. - Blood cx pending. If positive, we will pursue further work up (e.g, Echo). = Blood cultures negative //Anxiety - Patient's hair pulling habits possibly contributing to his symptoms. - ID recommends a Psychiatry consult. We will also start patient on low dose Seroquel. = Appreciate psychiatry assistance. -cont seroquel. //Full code. Lovenox. Discharge Planning: dc home with abx. f/u pcp
--- NOTE | 2017-11-05 10:29 | P.DS ---
Date of admission: 11/02/17 13:19 Primary care physician: No Primary Care Physician Brief History from admission: Mr. Barney is a pleasant 36-year-old male with a history of bacterial meningitis in 1999, recent IV drug abuse who presents to the emergency department due to worsening facial lesions and swelling. On 10/29/2017, patient started noticing multiple lesions on his face. He used tweezers to pick some here from his face. He came to the emergency department on 10/30/2017 and he was discharged on clindamycin. Despite taking antibiotics, his facial swelling, pain kept getting worse. He also reports chills but no fever. He admits to using IV drugs 2 weeks ago -he uses crack and heroine. At the time of this interview, patient denies any chest pain, shortness of breath, fever or chills. He reports facial swelling and difficulty eating. No changes in bowel or bladder habits. DS: Diagnosis - Discharge Diagnosis (1) IVDU (intravenous drug user) Status: Acute (2) Cellulitis of face Status: Acute DS: Medications - Discharge Medications Prescriptions: doxycycline hyclate 100 mg PO Q12HR #20 cap hydrocodone-acetaminophen 1 tab PO Q6H PRN #10 tab PRN Reason: Pain Scale 6 To 10 povidone-iodine 1 applicatio TOPICAL DAILY 14 Days g quetiapine 25 mg PO BID #60 tab DS: Summary Hospital Course: Patient presented with cellulitis, several facial abscesses. Infectious disease and plastic surgery were consulted. Patient underwent incision and drainage. MRSA resistant to clindamycin, as well as penicillins. Patient will be discharged home on doxycycline to complete treatment course. Follow-up with primary care as outpatient For problem based summary from most recent progress note, please see below. Mr. Barney is a 36-year-old male with a history of IV drug use, bacterial meningitis in 1999 who presents to the emergency department due to worsening facial lesions and swelling. //Facial cellulitis - Multiple indurated lesions. - Due to outpatient abx failure on Clindamycin and history of IV drug use, we will consult ID. - Discussed with ID. Patient may need acute and suppressive treatments. - Patient received Vancomycin and Zosyn in the ED. Will wait for ID recommendations. = Continue antibiotics. Status post incision and drainage by plastics. Appreciate assistance. ID following. = 11/04. Per discussion with ID yesterday, will follow up final results of facial abscess culture. = 11/05. MRSA has returned resistant to penicillins. Sensitive to Doxy, Bactrim. Will discharge home on antibiotics to complete treatment course. Follow-up with primary care as outpatient //History of recent IV drug use - Patient is heavily counselled. - Blood cx pending. If positive, we will pursue further work up (e.g, Echo). = Blood cultures negative //Anxiety - Patient's hair pulling habits possibly contributing to his symptoms. - ID recommends a Psychiatry consult. We will also start patient on low dose Seroquel. = Appreciate psychiatry assistance. -cont seroquel. //Full code. Lovenox. Discharge Planning: dc home with abx. f/u pcp - Time Spent with Patient Total time spent providing and/or coordinating discharge services: - Quality: VTE Deep Vein Thrombosis/Pulmonary Embolism Present on Admission: No Exam Vital signs: Vital Signs 11/04/17 12:00 11/04/17 15:49 11/04/17 16:00 Temperature 97.9 F 97.5 F L Pulse Rate 83 78 Respiratory Rate 16 18 14 Blood Pressure 162/87 H 135/83 Pulse Oximetry 99 96 11/04/17 19:24 11/05/17 00:22 11/05/17 04:02 Temperature 98.2 F 98.6 F 98.1 F Pulse Rate 100 H 114 H 112 H Respiratory Rate 18 17 18 Blood Pressure 145/91 H 136/87 138/85 Pulse Oximetry 97 97 96 Intake & Output 11/04/17 11/05/17 11/05/17 18:59 06:59 18:59 Intake Total 1030 / 1030 Balance 1030 / 1030 Intake: IV 1030 / 1030 Vancomycin Inj 1,500 MG In NS 1030 / 1030 Inj 500 ML @ 250 mls/hr IV.SIG Q12H [facility] Rx#:[id number] Other: Date of Last Bowel Movement 11/03/17 Results Procedures completed during hospitalization: Incision and drainage. Please see report. Labs on day of discharge: Preliminary micro results at discharge 11/02/17 09:45 Aerobic Blood Culture - Preliminary Blood - Peripheral No growth in 2 days Anaerobic Blood Culture - Preliminary No growth in 2 days 11/02/17 09:50 Aerobic Blood Culture - Preliminary Blood - Peripheral No growth in 2 days Anaerobic Blood Culture - Preliminary No growth in 2 days - Impressions ITS Impressions Chest X-Ray 11/02/17 09:30 CONCLUSION: No acute cardiopulmonary disease. Face CT 11/02/17 09:30 CONCLUSION: 1. Significant bilateral facial inflammation characteristic of cellulitis with subcutaneous fat involvement. There is no evidence of discrete abscess. 2. Significant reduction compared to 10/30 3. No evidence of deep fascial or intracranial involvement. Discharge Plan - Discharge Disposition Patient Disposition: 01 Discharge Home - Discharge Condition Condition: Good - Discharge Order Discharge Orders: Discharge Order (Routine); Ordered 11/05/17 Ordered By: Price Garcia - Discharge Details Anticipated Discharge Date: 11/05/17 - Physicians Team Primary Care Provider: Primary Care Marsha Allen Attending Provider: Price Garcia Other Providers: Cecilia Blanca MD ; Makenna Sanches MD ; Ed Hernandez MD
[2017-11-07] MEDS ORDERED: Pharmacy Ordered Lab Info OTHER ONE (08:45)
== END 2017-11-05 18:50 | disposition home or self-care (01) ==
LOC: NEPE 08:19 → NEPFCDU 08:19 → INTOOBSV 12:36 → NEDA 13:19 → NEPFCDU 17:59
PROVIDERS: ADMIT Internal Medicine; ATTEND Internal Medicine